=== PATIENT | female | born 1980 | race Caucasian/White ===

== ENCOUNTER 2016-05-08 00:32 | Emergency (ER) | payer OTHER ==
[2016-05-08 00:51] VITALS: BP 125/79; PULSE 97; RESP 18; TEMP 98.2; O2SAT 96
--- NOTE | 2016-05-08 00:58 | EDPHY ---
HPI/HX/ROS/PE/MDM Narrative: Chief complaint: Lesion on left leg HPI: 35-year-[place] patient states she called EMS because she scratched a sore spot on her leg and now has a circular lesion that she is concerned about. Patient states she was recently discharged for [facility] after a 3 week stay. She arrived on the bus to [place] today. She has not followed up with mental health or with primary care. She denies fevers or chills. States she has had this might right lower leg in the past and this looks similar. Denies suicidal ideation. Is codi for safety. Denies hallucinations. States she is waiting to get her medications from [facility] No chest pain. No shortness of breath. No fevers or chills. ROS: 10 point Review of Systems is negative except as noted in the HPI. Physical exam: Gen: Awake, Alert, No Distress HEENT: Nose: no rhinorrhea Eyes: PERRLA, EOMI Mouth: Moist mucosa Neck: Supple, no JVD Chest: nontender, lungs clear to auscultation Heart: S1, S2 normal, no murmur Abd: Soft, non-tender, no guarding Back: no CVA tenderness, no midline tenderness Ext: no edema, non-tender, she has a circular 3 cm lesion on the lateral aspect of her left calf which is excoriated and consistent with an abrasion from scratching. There is no surrounding erythema. There is no fluctuance. Skin: Upper extremity exam Neuro: CN II-XII intact, Sensation grossly intact, Strength 5/5 in bilateral upper and lower extremities General Time Seen by Provider: 05/08/16 00:41 Initial Vital Signs: Initial Vital Signs Temperature (C) 36.8 C 05/08/16 00:43 Heart Rate 97 05/08/16 00:43 Respiratory Rate 18 05/08/16 00:43 Blood Pressure 125/79 H 05/08/16 00:43 O2 Sat (%) 96 05/08/16 00:43 O2 Delivery Mode Room Air Departure - Departure Disposition: Home, Routine, Self-Care Clinical Impression: Skin abrasion Condition: Good Instructions: Abrasion (ED) Additional Instructions: Follow up with the [facility] and with [facility] for further evaluation and establishment of care. Return to the emergency department for suicidal thoughts, fevers, chills, increasing pain, or any other concerns. Make certain to take your medications. Referrals: Patient,NotPresent [Primary Care Provider] - As per Instructions [facility] [Outside] - As per Instructions [facility] [Outside] - As per Instructions
== END 2016-05-08 01:30 | disposition home or self-care (01) ==
DX: S80.812A Abrasion, left lower leg, initial encounter (principal); X58.XXXA Exposure to other specified factors, initial encounter